=== PATIENT | male | born 1965 | race Caucasian/White ===

== ENCOUNTER 2024-12-01 14:06 | Emergency (ER) | payer OTHER, SELFPAY ==
[2024-12-01 14:10] VITALS: BP 105/68
[2024-12-01 16:42] VITALS: BMI 19.0
[2024-12-01 16:48] VITALS: BP 101/83
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
[2024-12-01] MEDS: ADACEL 0.5 ML IM (17:14)
[2024-12-01] MEDS: MOTRIN 400 MG PO (17:14)
== END 2024-12-01 17:20 | disposition home or self-care (01) ==
LOC: EMR 14:06
PROVIDERS: EMERGENCY PHYSICIAN Emergency Medicine
DX: S50.312A Abrasion of left elbow, initial encounter (principal); S50.311A Abrasion of right elbow, initial encounter; Y09 Assault by unspecified means; Z23 Encounter for immunization
CPT/HCPCS: 99282; 90471; 90715

== ENCOUNTER 2025-01-31 11:34 | Emergency (ER) | payer OTHER, SELFPAY ==
[2025-01-31 11:40] VITALS: BP 108/75
[2025-01-31 11:53] LABS: Hematocrit 39.8 % (39.0-52.0); Hemoglobin 13.0 g/dL (13.0-18.0); Mean Corp Hgb Conc. 32.7 g/dL (33.0-37.0); Mean Corpuscular Volume 88.4 fL (80.0-94.0); Nucleated Red Blood Cells % 0 % (-); Platelet Count 161 10^3/uL (130-400); Red Cell Dist. Width 13.2 % (11.5-14.5)
[2025-01-31 12:14] LABS: ALT (SGPT) 16 U/L (0-50); AST (SGOT) 28 U/L (17-59); Albumin 4.4 g/dl (3.5-5.0); Alkaline Phosphatase 48 U/L (38-126); Blood Urea Nitrogen 21 mg/dl (9-20); Calcium 9.1 mg/dl (8.4-10.2); Carbon Dioxide 21 mmol/L (22-30); Chloride 112 mmol/L (98-107); Glucose 93 mg/dl (70-99); Potassium 4.3 mmol/L (3.5-5.1); Sodium 139 mmol/L (135-145); Total Protein 7.0 g/dl (6.3-8.2); eGFR > 60.00
[2025-01-31 12:26] LABS: Troponin I < 0.012 ng/ml
[2025-01-31 13:00] VITALS: BP 129/74
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
[2025-01-31 15:00] VITALS: BP 119/85
== END 2025-01-31 15:20 | disposition home or self-care (01) ==
LOC: EMR 11:34
PROVIDERS: Emergency Medicine; EMERGENCY PHYSICIAN Emergency Medicine
DX: R07.89 Other chest pain (principal); M54.50 Low back pain, unspecified; Y09 Assault by unspecified means; Z59.89 Other problems related to housing and economic circumstances
CPT/HCPCS: 99283; 80053; 84484; 85025; 93005